=== PATIENT | female | born 1970 | race Caucasian/White ===

== ENCOUNTER 2017-08-20 15:28 | Emergency (ER) | payer OTHER ==
[2017-08-20 16:54] LABS: INFLUENZA A PATIENT NEGATIVE (NEGATIVE); INFLUENZA B PATIENT NEGATIVE (NEGATIVE); OBC FLU VALID
== END 2017-08-20 17:03 | disposition home or self-care (01) ==
LOC: ER 15:28
DX: H66.92 Otitis media, unspecified, left ear (principal); I10 Essential (primary) hypertension; Z86.73 Personal history of transient ischemic attack (TIA), and cerebral infarction without residual deficits
CPT/HCPCS: 87804; 87804-59; 99284

== ENCOUNTER → 2017-10-30 | Outpatient (CLI) | payer OTHER | END | disposition home or self-care (01) | LOC: MAMMO 14:57 | DX: Z12.31 Encounter for screening mammogram for malignant neoplasm of breast (principal); I10 Essential (primary) hypertension | CPT/HCPCS: 77063; 77067 ==

== ENCOUNTER → 2017-11-16 | Outpatient (CLI) | payer OTHER | END | disposition home or self-care (01) | LOC: KCIC MRI 09:10 | DX: I73.89 Other specified peripheral vascular diseases (principal); G93.89 Other specified disorders of brain; R90.82 White matter disease, unspecified; Z86.73 Personal history of transient ischemic attack (TIA), and cerebral infarction without residual deficits | CPT/HCPCS: 70551 ==

== ENCOUNTER 2018-04-11 14:11 | Emergency (ER) | payer OTHER ==
[~2018-04-11] VITALS: Ht 154.9 cm; Wt 73.1 kg
[~2018-04-11 14:11] MED LIST: AMOX875T PO
[2018-04-11 15:10] LABS: BASO % 1 % (0-3); EOS # 0.1 x10^3/uL (0.0-0.7); EOS % 2 % (0-3); HEMATOCRIT 37.9 % (36.0-47.0); HEMOGLOBIN 13.2 g/dL (12.0-15.5); LYMPH # 2.8 x10^3/uL (1.0-4.8); LYMPH % 36 % (24-48); MEAN CORPUSCULAR HEMOGLOBIN 31 pg (25-35); MEAN CORPUSCULAR HGB CONC 35 g/dL (31-37); MEAN CORPUSCULAR VOLUME 90 fL (79-100); MONO # 0.8 x10^3/uL (0.0-1.1); MONO % 11 % (0-9); NEUT # 3.8 x10^3uL (1.8-7.7); NEUT % 51 % (31-73); PLATELET COUNT 250 x10^3/uL (140-400); RED BLOOD COUNT 4.23 x10^6/uL (3.50-5.40); RED CELL DISTRIBUTION WIDTH 12.8 % (11.5-14.5); WHITE BLOOD COUNT 7.6 x10^3/uL (4.0-11.0)
[2018-04-11 15:19] LABS: CREATININE 0.8 mg/dL (0.6-1.0); GFR 76.9; POTASSIUM 3.9 mmol/L (3.5-5.1)
--- NOTE | 2018-04-11 15:22 | EKG ---
[facility] [address] [place] [address] Test Date: 2018-04-11 Test Time: 14:22:38 Pat Name: BRIJESH SHEPARD Department: Room: Gender: F [employer] Sergeant: : 1970 Requested By: NIKHIL LEE Order Number: [id number] Reading MD: Measurements Intervals [place] Rate: 67 P: UT: QRS: 31 QRSD: 90 T: 42 QT: 404 QTc: 430 Interpretive Statements IRREGULAR RHYTHM, NO P-WAVE FOUND NO SPECIFIC ECG ABNORMALITIES RI6.01 No previous ECG available for comparison
[2018-04-11 15:33] LABS: ALBUMIN 3.9 g/dL (3.4-5.0); ALBUMIN/GLOBULIN RATIO 1.1 (1.0-1.7); TOTAL BILIRUBIN 0.4 mg/dL (0.2-1.0); TOTAL PROTEIN 7.6 g/dL (6.4-8.2)
--- NOTE | 2018-04-11 15:48 | RAD ---
MRI Brain without contrast History: Right arm tingling, history of stroke Technique: Multiplanar, multisequential noncontrast MR imaging was performed of the brain. Contrast: None Comparison: November 16, 2017 Findings: There is no evidence of recent infarct or cytotoxic edema. The ventricles, sulci, and cisterns are within normal limits in size and configuration. There is no significant midline shift, intraaxial mass effect, or focal abnormal extra-axial fluid collection. There is again encephalomalacia with cortical involvement centered in the left frontal lobe with extent to the insula anteriorly, associated gliosis signified by T2 and FLAIR hyperintense signal. A few other scattered small foci of T2 and FLAIR hyperintense signal of the supratentorial white matter are unchanged. There is mild hemosiderin deposition associated with focus of encephalomalacia. There is preservation of the major intracranial flow-voids at the skull base. There is very minimal patchy fluid of the right mastoid air cells as seen previously. The cerebellar tonsils are normal in location. There is no significant abnormality of the pineal gland or pituitary gland. There is very minimal patchy bilateral ethmoid air cell mucosal thickening. There is preserved marrow signal of the clivus. Impression: 1. There is no evidence of recent infarct or intracranial mass effect. There is again old infarct with cortical involvement centered in the left frontal lobe, associated gliosis. Other minimal T2 and FLAIR hyperintense signal abnormality of the supratentorial parenchyma is stable, may be due to chronic microvascular ischemic disease. Electronically signed by: Josias Reynolds MD (04/11/2018 3:44 PM) [id number]
[2018-04-11 15:50] VITALS: BP 113/76
--- NOTE | 2018-04-11 16:18 | PHYS DOC ---
Past Medical History Past Medical History: CVA, High Cholesterol, Hypertension, Migraines, Other Additional Past Medical Histor: pituitary gland tumor Past Surgical History: Tubal ligation, Other Additional Past Surgical Histo: cardiac cath Additional Information: 07/10 ppd Alcohol Use: Occasionally Additional Information: reports drinking 2 beers daily Drug Use: None Adult General Chief Complaint Chief Complaint: NEURO SYMPTOMS/DEFICITS [facility] HPI Patient is a 47 year old [place] who presents with chief complaint of right arm numbness. Apparently she had a flu shot yesterday she has had right deltoid pain and this morning woke up and noticed some numbness of her right hand and fact it is been there really since last evening. She also has intermittent issues with speech slurred speech. The daughter who provides additional history tells me that the speech problem is a chronic problem that comes and goes it waxes and wanes currently daughter thinks that the patient's speech is at baseline. Patient has no weakness noted leg or face symptoms at all. Currently feeling fine no chest pain. Review of Systems Review of Systems Constitutional: Denies fever or chills [] Eyes: Denies change in visual acuity, redness, or eye pain [] HENT: Denies nasal congestion or sore throat [] Respiratory: Denies cough or shortness of breath [] Cardiovascular: No additional information not addressed in HPI [] GI: Denies abdominal pain, nausea, vomiting, bloody stools or diarrhea [] : Denies dysuria or hematuria [] Musculoskeletal: Denies back pain or joint pain [] Integument: Denies rash or skin lesions [] Neurologic: Reports mild headache All other systems were reviewed and found to be within normal limits, except as documented in this note. Allergies Allergies Allergies Coded Allergies Type Severity Reaction Last Updated Verified No Known Drug Allergies 08/20/17 No Physical Exam Physical Exam Constitutional: Well developed, well nourished, no acute distress, non-toxic appearance. [] HENT: Normocephalic, atraumatic, bilateral external ears normal, oropharynx moist, no oral exudates, nose normal. [] Eyes: PERRLA, EOMI, conjunctiva normal, no discharge. [] Neck: Normal range of motion, no tenderness, supple, no stridor. [] Cardiovascular:Heart rate regular rhythm, no murmur [] Lungs & Thorax: Bilateral breath sounds clear to auscultation [] Abdomen: Bowel sounds normal, soft, no tenderness, no masses, no pulsatile masses. [] Skin: Warm, dry, no erythema, no rash. [] Back: No tenderness, no CVA tenderness. [] Extremities: , no cyanosis, no clubbing, ROM intact, no edema. [] Reproduce will tenderness over the right deltoid muscle Neurologic: Alert and oriented X 3, normal motor function, normal sensory function, no focal deficits noted. [] nihss 1a loc 1b ak month and age 1c blink eyes and squeeze hands 2 eom 3 vf 4 facial palsy 5 left arm motor drift 5b right arm motor drift 6a left leg motor drift 6b right leg motor drift 7 limb ataxia 8 sensation 9 language 10 dysarthria 11 extinction/inattention 0 patient gets a stroke scale of 0. Patient does have possibly very transient dysarthria however I can understand the patient quite well and then she has periods of very clear speech and the daughter states this is baseline. 0 for all of the above Psychologic: Affect normal, judgement normal, mood normal. [] Current Patient Data Vital Signs Vital Signs Date Time Temp Pulse Resp B/P (MAP) Pulse Ox O2 Delivery O2 Flow Rate FiO2 04/11/18 14:15 98.8 73 16 146/84 (104) 99 Room Air 98.8 Lab Values Laboratory Tests Test 04/11/18 14:23 04/11/18 14:35 Glucose (Fingerstick) 104 mg/dL (70-99) H White Blood Count 7.6 x10^3/uL (4.0-11.0) Red Blood Count 4.23 x10^6/uL (3.50-5.40) Hemoglobin 13.2 g/dL (12.0-15.5) Hematocrit 37.9 % (36.0-47.0) Mean Corpuscular Volume 90 fL (79-100) Mean Corpuscular Hemoglobin 31 pg (25-35) Mean Corpuscular Hemoglobin Concent 35 g/dL (31-37) Red Cell Distribution Width 12.8 % (11.5-14.5) Platelet Count 250 x10^3/uL (140-400) Neutrophils (%) (Auto) 51 % (31-73) Lymphocytes (%) (Auto) 36 % (24-48) Monocytes (%) (Auto) 11 % (0-9) H Eosinophils (%) (Auto) 2 % (0-3) Basophils (%) (Auto) 1 % (0-3) Neutrophils # (Auto) 3.8 x10^3uL (1.8-7.7) Lymphocytes # (Auto) 2.8 x10^3/uL (1.0-4.8) Monocytes # (Auto) 0.8 x10^3/uL (0.0-1.1) Eosinophils # (Auto) 0.1 x10^3/uL (0.0-0.7) Basophils # (Auto) 0.0 x10^3/uL (0.0-0.2) Sodium Level 142 mmol/L (136-145) Potassium Level 3.9 mmol/L (3.5-5.1) Chloride Level 106 mmol/L (98-107) Carbon Dioxide Level 24 mmol/L (21-32) Anion Gap 12 (6-14) Blood Urea Nitrogen 13 mg/dL (7-20) Creatinine 0.8 mg/dL (0.6-1.0) Estimated GFR (Cockcroft-Gault) 76.9 BUN/Creatinine Ratio 16 (6-20) Glucose Level 92 mg/dL (70-99) Calcium Level 10.0 mg/dL (8.5-10.1) Total Bilirubin 0.4 mg/dL (0.2-1.0) Aspartate Amino Transferase (AST) 18 U/L (15-37) Alanine Aminotransferase (ALT) 25 U/L (14-59) Alkaline Phosphatase 78 U/L (46-116) Troponin I Quantitative < 0.017 ng/mL (0.000-0.055) Total Protein 7.6 g/dL (6.4-8.2) Albumin 3.9 g/dL (3.4-5.0) Albumin/Globulin Ratio 1.1 (1.0-1.7) Laboratory Tests 04/11/18 14:35 Laboratory Tests 04/11/18 14:35 EKG EKG [] Interpretation Time: EKG shows a very likely sinus rhythm rate of 67 somewhat of a difficult EKG to interpret laterally but there is no obvious STEMI or ischemia seen. Radiology/Procedures Radiology/Procedures [] Impressions: Impression: 1. There is no evidence of recent infarct or intracranial mass effect. There is again old infarct with cortical involvement centered in the left frontal lobe, associated gliosis. Other minimal T2 and FLAIR hyperintense signal abnormality of the supratentorial parenchyma is stable, may be due to chronic microvascular ischemic disease. Electronically signed by: Maria Ines Guerra MD (04/11/2018 3:44 PM) [id number] DICTATED and SIGNED BY: MARIA INES GUERRA MD DATE: 04/11/18 1538 Course & Med Decision Making Course & Med Decision Making Pertinent Labs and Imaging studies reviewed. (See chart for details) []This is a 47-year-old female with history of a prior stroke who is presenting with some numbness of the right side arm after a flu shot. She had intermittent slurred speech which the family tells me his baseline and I really do not appreciate any significant slurred speech on examination. Due to symptoms and history an MRI was performed in the emergency room that showed no acute infarct this occurred while the patient was having her arm symptoms. Therefore the patient is not having an acute stroke and can be discharged in stable condition EKG and troponin were negative there was no chest pain patient has reproducible tenderness over the right deltoid muscle. Dragon Disclaimer Dragon Disclaimer This electronic medical record was generated, in whole or in part, using a voice recognition dictation system. Departure Departure Impression: Primary Impression: Numbness Disposition: 01 HOME, SELF-CARE Condition: STABLE Patient Instructions: Influenza Virus Vaccine injection NIKHIL LEE MD Apr 11, 2018 16:18
== END 2018-04-11 16:09 | disposition home or self-care (01) ==
LOC: ER 14:11
DX: R20.0 Anesthesia of skin (principal); R47.81 Slurred speech; R20.2 Paresthesia of skin; E78.00 Pure hypercholesterolemia, unspecified; I10 Essential (primary) hypertension; G43.909 Migraine, unspecified, not intractable, without status migrainosus; Z86.73 Personal history of transient ischemic attack (TIA), and cerebral infarction without residual deficits; F17.200 Nicotine dependence, unspecified, uncomplicated
CPT/HCPCS: 36415; 70551; 80053; 82962; 84484; 85025; 93005; 99285-25